=== PATIENT | female | born 1945 | race Caucasian/White ===

== ENCOUNTER → 2016-10-09 | Outpatient (CLI) | payer OTHER, MEDICARE | LOC: FIMAGING 14:56 | PROVIDERS: ATTEND Internal Medicine | DX: R91.1 Solitary pulmonary nodule (principal); I25.83 Coronary atherosclerosis due to lipid rich plaque ==

== ENCOUNTER → 2017-02-19 | Outpatient (CLI) | payer OTHER, MEDICARE | LOC: FIMAGING 08:19 | PROVIDERS: ATTEND Internal Medicine | DX: Z12.31 Encounter for screening mammogram for malignant neoplasm of breast (principal) | CPT/HCPCS: G0202 ==

== ENCOUNTER 2018-11-17 00:03 | Emergency (ER) | payer OTHER, MEDICARE ==
--- NOTE | 2018-11-17 00:25 | EDPHY ---
H & P Stated Complaint: FAST HEART RATE WITH DIZZINESS SINCE 11P.M. LIGHTHEADED Time Seen by Provider: 11/17/18 00:25 HPI/ROS: Chief Complaint: Heart racing HPI: 73-year-old female whose had 1 week of vertigo which is recurrent problem for her but then tonight she awoke suddenly with a regular rate see never heartbeat over 110-115 beats per minute. She felt very lightheaded during this episode and also had some left arm aching during it she states that the dizziness that she has was much more severe at the time. She states she had a similar thing happen about 4-5 years ago when she was hyperthyroid and they took her off her thyroid medication at that time. She was told she had a goiter. 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 Had her thyroid function test tested 1 month ago and they were normal but she says that she had them tested normal 1 week prior to her hyperthyroid episode. The vertigo happens approximately a few times over the last 5 years. The episode tonight lasted about an hour after onset at 11:00 p.m.. She said she has had a similar thing in the past but it has always been very brief and gets better on its own this 1 did not. She does note that he also takes Ativan at night for bed but does not know that that is related. She states that sometimes with the Ativan she gets up in the middle night she does not feel particularly dizzy. Tonight during the episode she felt so dizzy she could not walk. PMH: Thyroid disorder, vertigo Social History: Denies Tobacco, Drugs, Alcohol: ROS: Neuro: Positive occipital headache Constitutional: No Fever, positive dizziness ENT: No runny nose, No sore throat Cardiac: No Chest Pain per Se but she did have a left arm achiness an anginal equivalent and had palpitations with a fast heart rate Pulmonary: No Shortness of Breath GI: No abdominal Pain Skin: No rash Heme: No easy bruising : No urinary problems Eyes: No vision problems except for being a little bit difficult to focus. Musculoskeletal: No neck pain, No back pain Complete Review of systems negative except as noted above Physical Exam: General: Alert in some distress from anxiety Eyes: no icterus or pallor ENT: Mouth: Mucus membranes moist Neck: supple, no lymph nodes, no vertebral tenderness, no meningeal signs, no bruits Lungs CTA bilaterally, no respiratory distress Cardiac: Normal pulses, normal rate, normal rhythm, normal heart sounds GI: Abd Soft, non tender, no distention Back: Normal inspection, nml ROM, No CVAT, no vertebral tenderness Extremities: No swelling, nml ROM Skin: Warm, pink and dry, no rash, normal turgor Neuro: A&Ox3, MAEE, Nml Speech, cranial nerves 2-12 intact, normal motor in all 4 extremities Reevaluations, MDM, and data interpretation Data Interpretation Twelve lead EKG interpretation by myself shows a normal sinus rhythm with no ST or T-wave changes and no ectopy with normal axis and intervals. Reviewed prior records - [facility]. CTA Independently viewed by me ED Course Initial Eval: Pt greeted and advised about plan for care. Reevaluation On re-evaluation, the patient's symptoms have resolved. Her blood pressure has regressed to normal. She denies any palpitations, chest pain, dizziness or are making at this time. We did discuss that they could return and what she should do if they return. She is stable for discharge Medical Decision Making Differential Diagnosis and MDM: 73-year-old female with acute palpitations accompanied by left arm aching severe dizziness and inability to walk in the setting of intermittent vertigo. Differential diagnosis includes vertebral artery dissection, CVA, mi, angina as well as anxiety. I think the most likely thing that happened tonight was that she had an arrhythmia which triggered her other symptoms however it resolved prior to arrival to the emergency department so it is difficult to know with certainty. I did discuss this with the patient and she understands the potential for recurrence but that we have ruled out this series life-threatening emergent conditions tonight. At this point after negative CTA, negative. Troponin and negative EKG I think she is stable for outpatient management and follow-up with her doctor although she would benefit from having an outpatient Holter monitor. - Personal History Current Tetanus/Diphtheria Vaccine: Yes Current Tetanus Diphtheria and Acellular Pertussis (TDAP): Yes - Medical/Surgical History Hx Asthma: No Hx Chronic Respiratory Disease: No Hx Diabetes: No Hx Cardiac Disease: No Hx Renal Disease: No Hx Cirrhosis: No Hx Alcoholism: No Hx HIV/AIDS: No Hx Splenectomy or Spleen Trauma: No Other PMH: tumor removed from thyroid,. COLITIS, - Social History Smoking Status: Never smoked Constitutional: Initial Vital Signs Temperature (C) 36.6 C 11/17/18 00:04 Heart Rate 87 11/17/18 00:04 Respiratory Rate 18 11/17/18 00:04 Blood Pressure 184/95 H 11/17/18 00:04 O2 Sat (%) 100 11/17/18 00:04 O2 Delivery Mode Room Air Allergies/Adverse Reactions: No Known Allergies Allergy (Unverified 11/17/18 00:11) Home Medications: Medication Instructions Recorded LORazepam [Ativan] 11/17/18 Medical Decision Making - Diagnostics Imaging Results: Imaging Impressions Head CTA 11/17/18 00:44 Impression: 1. Normal intracranial arterial circulation. No evidence of embolic disease or aneurysm. 2. Patent venous system. CT Angiogram Neck Findings: The cervical thoracic aorta is normal caliber and gives rise to normal four-vessel neck anatomy. Bilateral common carotid, carotid bulbs, internal and external carotid arteries and bilateral vertebral arteries are widely patent. Mixed calcified and noncalcified plaque in bilateral carotid bulbs, extending into the origin of the internal carotid arteries, results in less than 20% narrowing bilaterally. No ulcerated plaque, flow-limiting stenosis , dissection, or occlusion. No enlarged lymph node or mass. CT Neck (Neck and Thoracic Inlet): The lung apices are clear with minimal diffuse peribronchial thickening. Moderate multilevel degenerative disk disease extends from C3-C4 to C6-C7. No fracture or bone lesion. Several surgical clips are present along the right side of the thyroid gland. Impression: Widely patent carotid and vertebral arteries. Atheromata in bilateral carotid bulbs and origin of internal carotid arteries result in less than 20% narrowing. A preliminary report was provided to Mateo Rosa MD on 11/17/2018 at 2: 41am. The final interpretation is concordant. DR1 Neck CTA 11/17/18 00:44 Impression: 1. Normal intracranial arterial circulation. No evidence of embolic disease or aneurysm. 2. Patent venous system. CT Angiogram Neck Findings: The cervical thoracic aorta is normal caliber and gives rise to normal four-vessel neck anatomy. Bilateral common carotid, carotid bulbs, internal and external carotid arteries and bilateral vertebral arteries are widely patent. Mixed calcified and noncalcified plaque in bilateral carotid bulbs, extending into the origin of the internal carotid arteries, results in less than 20% narrowing bilaterally. No ulcerated plaque, flow-limiting stenosis , dissection, or occlusion. No enlarged lymph node or mass. CT Neck (Neck and Thoracic Inlet): The lung apices are clear with minimal diffuse peribronchial thickening. Moderate multilevel degenerative disk disease extends from C3-C4 to C6-C7. No fracture or bone lesion. Several surgical clips are present along the right side of the thyroid gland. Impression: Widely patent carotid and vertebral arteries. Atheromata in bilateral carotid bulbs and origin of internal carotid arteries result in less than 20% narrowing. A preliminary report was provided to Mateo Rosa MD on 11/17/2018 at 2: 41am. The final interpretation is concordant. DR1 Head CT 11/17/18 01:51 Impression: Negative. No acute intracranial hemorrhage or evidence of ischemia. A preliminary report was provided to Mateo Rosa MD on 11/17/2018 at 2: 37 a.m. The final interpretation is concordant. DRJosé Imaging: I viewed and interpreted images myself - Data Points Laboratory Results: Laboratory Results 11/17/18 01:00 11/17/18 01:00 11/17/18 11/17/18 11/17/18 04:20 01:00 01:00 WBC 6.09 10^3/uL 10^3/uL (3.80-9.50) RBC 4.58 10^6/uL 10^6/uL (4.18-5.33) Hgb 13.0 g/dL g/dL (12.6-16.3) Hct 39.3 % % (38.0-47.0) MCV 85.8 fL fL (81.5-99.8) MCH 28.4 pg pg (27.9-34.1) MCHC 33.1 g/dL g/dL (32.4-36.7) RDW 12.6 % % (11.5-15.2) Plt Count 287 10^3/uL 10^3/uL (150-400) Sodium 139 mEq/L mEq/L (135-145) Potassium 4.0 mEq/L mEq/L (3.5-5.2) Chloride 103 mEq/L mEq/L (97-110) Carbon Dioxide 24 mEq/l mEq/l (22-31) Anion Gap 12 mEq/L mEq/L (6-14) BUN 15 mg/dL mg/dL (7-23) Creatinine 0.8 mg/dL mg/dL (0.6-1.0) Estimated GFR > 60 Glucose 112 mg/dL H mg/dL (70-100) Calcium 9.2 mg/dL mg/dL (8.5-10.4) POC Troponin I 0.00 ng/mL ng/mL (0.00-0.08) TSH 5.160 uIU/mL H uIU/mL (0.465-4.680) Free T4 1.16 ng/dL ng/dL (0.59-2.19) Point of Care Test Results: Chemistry 11/17/18 04:20 POC Troponin I 0.00 ng/mL ng/mL (0.00-0.08) Departure - Departure Disposition: Home, Routine, Self-Care Clinical Impression: Chest pain, Vertigo, Hypertension, Tachycardia Condition: Good Instructions: Chest Pain (ED), Vertigo (ED), Tachycardia (ED) Additional Instructions: Call your doctor today. You may need a Holter monitor or event monitor to evaluate for your fast heart rate that resolved before you arrived in the emergency department today Referrals: Daron East [Primary Care Provider] - As per Instructions
[2018-11-17] MEDS ORDERED: IOPAMIDOL (ISOVUE 370) 100 ML BTL IV ONE (01:39)
[2018-11-17 04:49] VITALS: BP 135/84
--- NOTE | 2018-11-25 18:58 | CPEKG ---
Test Reason : OPEN Blood Pressure : / mmHG Vent. Rate : 073 BPM Atrial Rate : 073 BPM P-R Int : 166 ms QRS Dur : 078 ms QT Int : 394 ms P-R-T Axes : 074 062 061 degrees QTc Int : 435 ms Sinus rhythm Confirmed by Lionel Mueller ([id number]) on 11/25/2018 6:58:27 PM Referred By: Mateo Rosa Confirmed By:Lionel Mueller
== END 2018-11-17 05:08 | disposition home or self-care (01) ==
DX: R07.9 Chest pain, unspecified (principal); R42 Dizziness and giddiness; R00.0 Tachycardia, unspecified; I10 Essential (primary) hypertension; E07.9 Disorder of thyroid, unspecified
CPT/HCPCS: 70450; 70496; 70498; 93005; 99285; Q9967; 84484-ER

== ENCOUNTER → 2018-11-21 | Outpatient (CLI) | payer OTHER, MEDICARE | LOC: BHFA 09:15 | PROVIDERS: ATTEND Internal Medicine Cardiovascular Disease | DX: R00.0 Tachycardia, unspecified (principal) ==